=== PATIENT | male | born 1955 | race Caucasian/White ===

== ENCOUNTER 2018-07-18 22:26 | Observation (INO) | payer OTHER ==
[~2018-07-18] VITALS: Ht 190.5 cm; Wt 112.3 kg
--- NOTE | ~2018-07-18 | HEMODYNAMI ---
PATIENT:JONATHAN OTTO MEDICAL RECORD: [id number] : 51 LOCATION:[facility] D.2124 ADMISSION DATE: 07/18/18 Generatedon:07/20/20188:46 Patient name: JONATHAN OTTO Patient #: [id number] SSN: : Date of study: 07/20/2018 Page: Of Hemodynamic Procedure Report Patient Data Patient Demographics Procedure consent was obtained First Name: JONATHAN Gender: Male Last Name: FAM : 1955 [facility] Initial: KAROLYN Age: 62 year(s) Patient #: [id number] Race: Unknown Additional ID: [id number] Contact details [address]: [address] [place] [address] State: [place] City: [place] Zip code: [address] Past Medical History Allergies Allergen Reaction Date Comments Reported Morphine 07/20/2018 Admission Admission Data Admission Date: 07/18/2018 Admission Time: 23:44 Room #: D.2124 Procedure Procedure Types Cath Procedure Diagnostic Procedure [facility] w/Coronaries PCI Procedure Coronary Stent Coronary Stent Initial Procedure Description Procedure Date Procedure Date: 07/20/2018 Procedure Start Time: 8:25 Procedure End Time: 8:45 Procedure Staff Name Function Willis Krishnan MD Performing Physician Diana Abbott RN Nurse Kylee Arambula RT Scrub Troy Granger RT Monitor Grupo Acuna RN Duty Officer Alexa Alonzo RN Duty Officer Procedure Data Cath Procedure Contrast Material Contrast Material Type Amount (ml) Isovue 300 109 Entry Location Entry Primary Successful Side Size Upsize Upsize Entry Closure Monet ccessful Closure Location (Fr) 1 (Fr) 2 (Fr) Remarks Device Remarks Radial Right 6 Fr Mechanical artery Short Compression Diagnostic catheters Device Type Used For End Catheter Placement DIAGNOSTIC Leota 110cm 5 LV Angiography Fr catheter ([id number]) DIAGNOSTIC AR2 MOD 5 Fr Right Coronary catheter ([id number]) Angiography Procedure Complications No complications Procedure Medications Medication Administration Route Dosage Oxygen etCO2 Nasal cannula 2 l/min Lidocaine 2% added to field 20 Heparin Flush Bag added to field 2 bags (1000units/500ml NS) 0.9% NaCl I.V. 100 ml/hr Radial Cocktail added to field 1 syringe (Verapomil 2mg/Nitro 400mcg/Heparin 1500units) Versed I.V. 2 mg Fentanyl I.V. 50 mcg Versed I.V. 1 mg Fentanyl I.V. 25 mcg Heparin Bolus I.V. 5000 units Plavix P.O. 75 mg Hemodynamics Rest Heart Rate: 74 (bpm) Pressure Samples Time Site Value (mmHg) Purpose Heart Use Rate(bpm) 8:29 AO 147/31(49) Snapshot 73 8:29 AO 132/26(64) EDP 73 Snapshots Pre Cath Intra NCS Post Cath Vital Signs Time Heart Resp SPO2 etCO2 NIBP (mmHg) Rhythm Pain Sedation Rate (ipm) (%) (mmHg) Status Level (bpm) 8:12:27 64 23 99 31 136/93(121) A-Flutter 0 (11) 10(A) , No pain 8:16:38 73 22 98 23 139/95(117) A-Flutter 0 (11) 10(A) , No pain 8:20:54 77 21 97 27 138/89(118) A-Flutter 0 (11) 10(A) , No pain 8:25:02 83 17 98 26.3 136/101(111) A-Flutter 0 (11) 10(A) , No pain 8:29:12 81 15 96 20 119/91(106) A-Flutter 0 (11) 10(A) , No pain 8:33:24 83 16 96 27.1 122/84(116) A-Flutter 0 (11) 9(A) , No pain 8:37:32 79 14 98 21.9 129/93(110) A-Flutter 0 (11) 9(A) , No pain 8:41:38 81 15 99 26.3 135/91(120) A-Flutter 0 (11) 10(A) , No pain 8:45:56 70 17 95 20.1 124/79(109) A-Flutter 0 (11) 10(A) , No pain Medications Time Medication Route Dose Verified Delivered Reason Note s Effectiveness by by 8:11:02 Oxygen etCO2 2 l/min Willis Ortiz used for Nasal St Brenden Abbott RN procedure cannula 8:11:08 Lidocaine 2% added 20ml Willis Pedro for local to vial [facility] anesthetic field MD YEN 8:11:14 Heparin Flush added 2 bags Willis Pedro used for Bag to [facility] procedure (1000units/500ml field MD YEN NS) 8:11:22 0.9% NaCl I.V. 100 Willis Ortiz Per physician ml/hr St Brenden Abbott RN, MD 8:22:11 Fentanyl I.V. 50 mcg Willis Saenza for sedation St Brenden Alonzo MD, RN 8:22:52 Versed I.V. 2 mg Willis Alexa for sedation St Brenden Alonzo MD, RN 8:25:11 Radial Cocktail added 1 Willis Pedro used for (Verapomil to syringe [facility] procedure 2mg/Nitro field MD YEN 400mcg/Heparin 1500units) 8:29:20 Versed I.V. 1 mg Willis Alexa for sedation St Brenden Alonzo MD, RN 8:29:26 Fentanyl I.V. 25 mcg Willis Alexa for sedation St Brenden Alonzo MD, RN 8:38:20 Heparin Bolus I.V. 5000 Willis Alexa for veri fied units [facility] anticoagulation with Dr. MD GARCIA Carefree 8:39:46 Plavix P.O. 75 mg Willis Alexa [address] [facility] Brenden Alonzo antiplatelet RN therapy Procedure Log Time Note 7:49:28 Diagnostic Cath status Elective 7:49:30 Signed procedure consent form obtained from patient. 7:49:31 Time tracking: Regular hours (M-F 7:00 - 5:00) 7:49:35 Plan of Care:Hemodynamics will remain stable., Cardiac rhythm will remain stable., Comfort level will be maintained., Respiratory function will remain adequate., Patient/ family verbilizes understanding of procedure., Procedure tolerated without complication., Recovers from procedure without complications.. 7:54:04 Grupo Acuna RN sent for patient. Start room use. 8:04:52 Patient received from Med II to CCL 1 Alert and oriented. Tansferred to table in Supine position. 8:04:53 Warm blankets applied, and facundo hugger turned on for patient comfort. 8:04:54 Correct patient and procedure confirmed by team. 8:04:55 ECG and BP/O2 sat monitors applied to patient. 8:11:02 Oxygen 2 l/min etCO2 Nasal cannula was administered by Diana Abbott RN; used for procedure; 8:11:08 Lidocaine 2% 20ml vial added to field was administered by Willis Krishnan MD; for local anesthetic; 8:11:14 Heparin Flush Bag (1000units/500ml NS) 2 bags added to field was administered by Willis Krishnan MD; used for procedure; 8:11:22 0.9% NaCl 100 ml/hr I.V. was administered by Diana Abbott RN; Per physician; 8:11:26 Vital chart was started 8:18:07 Baseline sample Acquired. 8:18:11 Rhythm: atrial flutter 8:18:14 Full Disclosure recording started 8:18:39 H&P Date Dictated: 07/18/2018 Within 30 days and on chart., H&P Addendum completed by physician on day of procedure. (MUST COMPLETE FOR ALL OUTPATIENTS). 8:18:42 Pre-procedure instructions explained to patient. 8:18:47 Family in patients room. 8:18:48 Patient NPO since Midnight. 8:18:57 Patient allergic to Morphine 8:19:05 Is the patient allergic to Iodine/contrast media? No. 8:19:10 Is patient on blood thinner?No 8:19:12 Patient diabetic? No. 8:19:14 ----Pre-sedation anethsthesia assessment.---- 8:19:18 Previous problem with sedation/anesthesia? No ? 8:19:21 Snore? Yes 8:19:24 Sleep apnea? No 8:19:26 Deviated septum? No 8:19:42 Opens mouth fully? Yes 8:19:44 Sticks out tongue? Yes 8:19:48 Airway obstruction? No ? 8:19:56 Dentures? Yes out 8:21:09 Pre procedure: right dorsailis pedis pulse 2+ Normal; easily identifiable; not easily obliterated 8:21:20 Modified Nilesh's test Ulnar < 7 seconds 8:21:24 Patient pain scale 0/10 ?. 8:21:33 IV patent on arrival in left antecubital with 0.9% NaCl at 10ml/hr. 8:21:37 Lab results completed and on chart. 8:21:40 Right Radial & Right Groin area was prepped with chlora-prep and draped in sterile fashion 8:21:42 Alarms reviewed by R. N. 8:21:43 Sharps counted by scrub and verified by R.N. 8:21:44 Physician arrived 8:21:45 --------ALL STOP TIME OUT------ 8:21:45 Final Timeout: patient, procedure, and site verified with staff and physician. All members of the team are in agreement. 8:21:47 Right Radial & Right Groin site verified by team. 8:21:50 Physical assessment completed. ASA score P 2 - A patient with mild systemic disease as per Willis Krishnan MD. 8:21:55 Sedation plan: IV Moderate Sedation Medication:Versed, Fentanyl 8:22:01 Use device set Radial Dx or PCI 8:22:03 ACIST Syringe (57768) opened to sterile field. 8:22:04 Medline Cath Pack ([id number]) opened to sterile field. 8:22:04 Bag Decanter (2002S) opened to sterile field. 8:22:05 DIAGNOSTIC WIRE .035 260cm J wire (233231) opened to sterile field. 8:22:05 ACIST Hand Control (95618) opened to sterile field. 8:22:05 ACIST Manifold (92939) opened to sterile field. 8:22:06 Tegaderm 4 x 4 (1626W) opened to sterile field. 8:22:06 MBrace Wrist Support ([id number]) opened to sterile field. 8:22:11 Fentanyl 50 mcg I.V. was administered by Alexa Alonzo RN; for sedation; 8:22:12 SHEATH 6FR Slender (24-4456) opened to sterile field. 8:22:52 Versed 2 mg I.V. was administered by Alexa Alonzo RN; for sedation; 8:23:01 Zero performed for pressure channel P1 8:23:33 Procedure started. 8:25:11 Radial Cocktail (Verapomil 2mg/Nitro 400mcg/Heparin 1500units) 1 syringe added to field was administered by Willis Krishnan MD; used for procedure; 8:25:19 Local anesthetic to right radial artery with Lidocaine 2% by Willis Krishnan MD.INITIAL ACCESS ONLY 8:25:31 A 6 Fr Short sheath was inserted into the Right Radial artery 8:29:17 Zero performed for pressure channel P1 8:29:20 Versed 1 mg I.V. was administered by Alexa Alonzo RN; for sedation; 8:29:20 Zero performed for pressure channel P1 8:29:22 Zero performed for pressure channel P1 8:29:24 Zero performed for pressure channel P1 8:29:26 Fentanyl 25 mcg I.V. was administered by Alexa Alonzo RN; for sedation; 8:29:57 A DIAGNOSTIC Leota 110cm 5 Fr catheter ([id number]) was advanced over the wire and used for LV Angiography. 8:30:14 LV angiography performed. 8:30:20 EF : 25 % 8:30:24 LCA angiography performed. 8:32:26 Catheter exchanged over wire. 8:33:05 A DIAGNOSTIC AR2 MOD 5 Fr catheter ([id number]) was advanced over the wire and used for Right Coronary Angiography. 8:33:24 RCA angiography performed. 8:34:53 Catheter exchanged over wire. 8:36:50 Zero performed for pressure channel P1 8:38:20 Heparin Bolus 5000 units I.V. was administered by Alexa Alonzo RN; for anticoagulation; verified with Dr. Bustillos 8:38:57 WHISPER 300cm guide wire ([id number]) opened to sterile field. 8:38:57 INFLATOR Merit BasixCompak (VX0760) opened to sterile field. 8:39:10 GUIDE 6FR EBU 4.0 guide catheter ([id number]) opened to sterile field. 8:39:24 6 Fr ebu 4 guide catheter was inserted over the wire 8:39:28 whisper wire advanced. 8:39:46 Plavix 75 mg P.O. was administered by Alexa Alonzo RN; for antiplatelet therapy; 8:42:06 Place stent Inflation Number: 1 A INTEGRITY OTW 3.5 X 22 stent ([id number]) was prepped and advanced across the Mid LAD. The stent was deployed at 14 YOLANDA for 0:29 (min:sec). 8:42:08 Stent catheter was removed intact over wire. 8:42:08 Wire removed. 8:42:11 Guide catheter removed. 8:42:18 Contrast amount:Isovue 300 109ml. 8:42:25 Sheath removed intact; hemostasis achieved with Mechanical Compression to the Right Radial artery. 8:42:27 Procedure ended.(Physican Out) 8:43:11 Procedure type changed to Cath procedure, Diagnostic procedure, LHC, LHC w/Coronaries, PCI procedure, Coronary Stent, Coronary Stent Initial 8:43:14 Sharps counted by scrub and verified by R.N. 8:43:17 TR band inflated with 10cc of air. 8:43:24 Post right radial artery:stable 8:43:25 Post Procedure Pulses reassessed and unchanged 8:43:32 Post procedure rhythm: atrial flutter 8:43:33 Post procedure instruction explained to patient.Patient verbalizes understanding. 8:43:51 Procedure and supply charges have been captured, reviewed, submitted and are correct. 8:44:59 TR BAND Large ([id number]) opened to sterile field. 8:45:15 Procedure Complication : No complications 8:45:18 Vital chart was stopped 8:45:18 See physician's report for complete and final results. 8:45:20 Report given to PCU. 8:45:24 Patient transfered to PCU with Bed. 8:45:57 Procedure ended. 8:45:57 Full Disclosure recording stopped 8:46:06 ACC-PCI Only Patient was given prescriptions, or instructed by Willis Krishnan MD to start/continue the following medications upon discharge: Plavix 8:46:07 End room use (Document Last) Intervention Summary Intervention Notes Time ActionType Lesion and Equipment Action# Pressure Duration Attributes Used 8:42:06 Place stent Mid LAD INTEGRITY 1 14 00:29 OTW 3.5 X 22 stent ([id number]) Device Usage Item Name Manufacture Quantity Catalog Hospital Part Current Minimal Lot# / Number Charge Number Stock Stock Serial# Code ACIST Acist 1 57422 497141 561108 533801 20 Syringe SoundRoadie (77134) Systems Inc Medline Medline 1 [id number] 042591 90008 705401 5 Cath Pack ([id number]) Bag Microtek 1 354165 01949 133790 5 Decanter Medical Inc. () DIAGNOSTIC St Pablo 1 213853 695391 755965 376815 30 WIRE .035 260cm J wire (334250) ACIST Hand Acist 1 11347 625167 142066 797474 5 Control Medical (25052) Systems Inc ACIST Acist 1 86942 881514 547847 650015 5 Manifold Medical (03533) Systems Inc Tegaderm 4 3M 1 1626W 148723 188702 546384 5 x 4 (1626W) MBrace Advanced 1 140-0250-00 253684 70362 103690 5 Wrist Vascular Support Dynamics (274241057) SHEATH 6FR Terumo 1 [id number] 624783 074641 327105 5 Slender (80-1060) DIAGNOSTIC Terumo 1 40-5013 199964 893550 243591 5 Leota 110cm 5 Fr catheter (722137) DIAGNOSTIC Cardinal 1 [id number] 110329 745338 964790 20 AR2 MOD 5 Health Fr catheter (344910C) WHISPER Parks 1 [id number] 629473 090799 776063 5 300cm guide Vascular wire (2937730JW) INFLATOR Fundamo (Proprietary) 1 RL6018 618565 988827 829450 15 [facility] Medical BasixCompak (YQ4415) GUIDE 6FR Medtronic 1 [id number] 764864 03811 140745 1 EBU 4.0 guide catheter ([id number]) INTEGRITY Medtronic 1 [id number] 500944 575396 6 [id number] OTW 3.5 X 22 stent ([id number]) TR BAND Terumo 1 QPH68-NOK 702217 178584 267003 40 Large (YFW98TML) Signature Audit Perkins Stage Time Signature Unsigned Intra-Procedure 07/20/2018 Troy Granger RT(Guillermo) 8:46:46 AM Signatures Monitor : Troy Granger RT Signature : Date : Time : [facility] [address] [place] [address]
--- NOTE | ~2018-07-18 | OP ---
PATIENT NAME: JONATHAN OTTO MEDICAL RECORD: [id number] :51 LOCATION:D.M2 D.2124 ADMISSION DATE:07/18/18 SURGEON: DENYS TAYLOR MD DATE OF OPERATION: 07/20/2018 PROCEDURE: Left heart catheterization, selective coronary angiography, right radial approach. CATHETERS: A radial catheter. Diagnostically, we used an EBU 4 guiding catheter. The procedure was well tolerated. We proceeded to do PTCA sitting LAD. FINDINGS: Left ventriculography in 30-degree AVERY view shows global hypokinesis, reduced EF, estimated EF 25% to 30%. CORONARY ANATOMY: LEFT MAIN: Left main is free of disease. LAD: Has severe diffuse stenosis 80% just past the first diagonal. CIRCUMFLEX: Free of disease. RIGHT CORONARY ARTERY: Has 2 discrete stenoses in its proximal mid portion approximately 80%. IMPRESSION: Plan revascularization LAD right at a later date. DESCRIPTION OF PROCEDURE: Using indwelling sheath, an EBU 4 guiding catheter provided good guide catheter support followed by 300 cm Whisper wire. Stent deployed was a 3.5 x 22 mm Integrity nondrug-eluting stent up to 14 atmospheres. Final angiography shows excellent resolution of 80% stenosis, no significant residual. ROCCO flow was 3 throughout the procedure. Plavix had previously been loaded and will be started on appropriate cardiomyopathic medications. Consider cardioversion, revascularization of the right at a later date. TRANSINT:[id number] Voice Confirmation ID: [id number] DOCUMENT ID: [id number] DENYS TAYLOR MD CC: [id number] DICTATION DATE: 07/20/18 0850 WELLNESS SPECIALIST: 07/20/18 0903 ADM IN [place] [id number] [place] [address]
--- NOTE | ~2018-07-18 | EC ---
PATIENT:JONATHAN OTTO DATE OF SERVICE: 07/18/18 SEX: M MEDICAL RECORD: [id number] DATE OF : [birth year] LOCATION:D.M2 D.212 AGE OF PATIENT: 62 ADMISSION DATE: 07/18/18 REFERRING PHYSICIAN: INTERPRETING PHYSICIAN: KIRAN WILCOX MD ECHOCARDIOGRAM REPORT ECHO CHARGES 4 ECHO COMPLETE Date: 07/19/18 CLINICAL DIAGNOSIS: CHEST PAIN ECHOCARDIOGRAPHIC MEASUREMENTS (adult normal given) AC root (d.<3.7cm) 3.7 cm LV Septum d (<1.2 cm> 1.1 cm Valve Excursion 1.6 cm LV Septum (systole) 1.4 cm Left Atria (s.<4.0cm> 4.6 cm LVPW d(<1.2cm) 1.4 cm RV (d.<2.3cm) 4.2 cm LVPW (sytole) 1.8 cm LV diastole(<5.6CM) 7.6 cm MV E-F(>70mm/sec) cm LV systole 6.1 cm LVOT Diameter 2.3 cm MV exc.(>10mm) 1.4 cm Est.ejection fraction (50-75%) % DOPPLER: LVIT cm/sec A 75.0 cm/sec E 30.0 cm/sec LA cm/sec RVSP 18 mmHg LVOT 128 cm/sec AOP1/2T m/s Asc. Ao 168 cm/sec RVOT 81 cm/sec RA cm/sec PA 172 cm/sec AV Gradient Peak 11.30mmHg AV Mean 6.31 mmHg AV Area 3.2 cm MV Gradient Peak 5.85 mmHg MV Mean 1.83 mmHg MV Area cm COMMENTS: Collision Worker: 2 ROME SUE Car Pre Cooler: 1 Dr. Wilcox TAPE# PACS Pericardial Effusion N DATE OF SERVICE: FINDINGS: 1. Left ventricular chamber size is moderate to severely dilated. Left ventricular systolic function is moderately reduced. Overall ejection fraction in the 35% range. 2. Left atrium is enlarged at 4.6 cm. Right atrium and right ventricle chamber sizes are as well moderately dilated. 3. Valvular structures have normal structure and motion. 4. Doppler interrogation reveals mild mitral regurgitation. No other valvular ECHOCARDIOGRAM REPORT [id number] JONATHAN OTTO insufficiency or stenosis. Pulmonary systolic pressure is preserved at 18 mmHg. 5. No evidence of pericardial effusion or left ventricular thrombus. TRANSINT:[id number] Voice Confirmation ID: [id number] DOCUMENT ID: [id number] KIRAN WILCOX MD CC: [id number] DICTATION DATE: 07/19/18 160 APPLICATIONS ENGINEERING MANAGER: 07/19/18 223 ADM IN [facility] [address] [place] [address]
--- NOTE | ~2018-07-18 | CN ---
PATIENT NAME:MELVINA OTTO MEDICAL RECORD: [id number] : 51 LOCATION:D. D.2124 ADMIT DATE: 07/18/18 ACCOUNT: [id number] CONSULTING PHYSICIAN: DENYS TAYLOR MD REFERRING PHYSICIAN: MATY BRIONES MD DATE OF CONSULTATION: 07/19/2018 HISTORY: A 62-year-old gentleman with no known cardiovascular history, reports about a month history of progressive dyspnea on exertion and shortness of breath progressing to the point of melvina orthopnea, PND. He was seen in [place] ER and found to have atrial flutter and elevated troponin as well. He was brought here for higher level of care. Currently, he is improved on IV Lasix. Rates are fairly well controlled on telemetry. PAST MEDICAL HISTORY: Otherwise unremarkable. MEDICATIONS: None chronically. ALLERGIES: MORPHINE. SOCIAL HISTORY: He smokes a little less than a pack a day. He still works multimedia manager. He takes care of all his ADLs. REVIEW OF SYSTEMS: The patient reports easy bruising but reports no swollen glands. The patient reports no fever, no night sweats, no significant weight gain, no significant weight loss. No significant exercise tolerance. The patient reports no dry eyes, no irritation, no vision change. Patient reports no difficulty hearing and no ear pain. Patient reports no frequent nose bleeds or nose and sinus problems. Patient reports on arm pain on exertion. No shortness of breath while lying down. No history of heart murmur. Patient reports no cough, no wheezing or coughing up blood. Patient reports no abdominal pain, no vomiting. Normal appetite. No diarrhea and not vomiting blood. No nausea and no constipation. Patient reports no incontinence. No difficulty urinating. No hematuria. No increased frequency. Patient reports no muscle aches. No weakness, no arthralgias, no back pain. No swelling of the extremities. Patient reports no abnormal mole, no jaundice, no rashes. Reports no loss of consciousness. No weakness and no numbness. No seizures, dizziness, or headaches. The patient reports no depression, no sleep disturbance, feeling safe in a relationship and no alcohol abuse. Patient reports on fatigue. Reports no runny nose or sinus pressure. No itching, no hives, and no frequent sneezing. PHYSICAL EXAMINATION: GENERAL: Pleasant gentleman, in no acute distress, appears stated age. VITAL SIGNS: Pulse 106 and irregular, BP 134/96. NECK: No JVD or bruit. HEART: Irregular with II/ systolic ejection murmur. LUNGS: Decreased breath sounds bilaterally. ABDOMEN: Soft and nontender. EXTREMITIES: Pulses are 1+. There is no edema. DIAGNOSTIC DATA: ECG shows atrial flutter variable block ST-T changes. IMPRESSION: Atrial flutter, historically at least of one month duration; elevated cardiac enzymes with chest pain. It could be demand ischemia versus a CONSULT REPORT [id number] MELVINA OTTO true fixed obstructive disease. We will start Betapace for rate control and atrial stabilization. Plavix will be loaded. We will plan on angiography and intervention based on the above. TRANSINT:[id number] Voice Confirmation ID: [id number] DOCUMENT ID: [id number] DENYS TAYLOR MD CC: [id number] DICTATION DATE: 07/19/18 1348 DATA PROCESSING MECHANIC: 07/19/18 1737 ADM IN [place] [id number] [place] [address]
[2018-07-18 23:31] LABS: HEMATOCRIT 43.9 % (42.0-54.0); HEMOGLOBIN 14.7 g/dL (13.5-17.5); LYMPHOCYTES 22.4 % (15-50); MCH 29.8 pg (26.0-34.0); MCHC 33.5 g/dL (31.0-37.0); MCV 88.9 fL (80.0-100.0); MEAN PLATELET VOLUME 10.8 fL (7.4-10.4); NEUTROPHILS 62.2 % (40-80); PLATELET COUNT 199 10x3/uL (130-400); RBC 4.94 10x6/uL (4.20-6.10); RDW 14.4 % (11.5-14.5)
[2018-07-18 23:46] LABS: ALBUMIN 3.6 g/dL (3.4-5.0); ALKALINE PHOSPHATASE 48 U/L (46-116); ALT (SGPT) 40 U/L (10-68); BILIRUBIN - TOTAL 1.21 mg/dL (0.2-1.3); CALC OSMOLALITY 272 mosm/kg (275-300); CALCIUM 9.1 mg/dL (8.5-10.1); CARBON DIOXIDE 26.1 mmol/L (21.0-32.0); CHLORIDE - SERUM 101 mmol/L (98-107); CREATININE - SERUM 0.9 mg/dL (0.6-1.3); GLUCOSE 98 mg/dL (74-106); POTASSIUM - SERUM 3.3 mmol/L (3.5-5.1); PROTEIN - SERUM 7.6 g/dL (6.4-8.2); SODIUM 136 mmol/L (136-145); UREA NITROGEN 16 mg/dL (7-18); eGFR NON AFRICAN AMERICAN 90 mL/min (90-120)
[2018-07-19] VITALS: BP 179/107
[2018-07-19 00:01] LABS: CKMB 3.9 U/L (0.0-3.6); CREATINE KINASE 156 UL (21-232)
[2018-07-19 00:07] LABS: TROPONIN-I 0.085 ng/mL (0.000-0.060)
[2018-07-19] MEDS ORDERED: MULTI-DAY VITAM1 TAB PO (00:31)
[2018-07-19] MEDS ORDERED: GLUCOSAMINE HC500 MG PO (00:31)
[2018-07-19] MEDS ORDERED: ALEVE220 MG PO (00:32)
[2018-07-19 05:08] VITALS: BP 153/100
[2018-07-19 05:16] VITALS: Ht 190.5 cm; Wt 112.3 kg
[2018-07-19 06:02] LABS: BASOPHILS 0.6 % (0-2); EOSINOPHILS 4.4 % (0-7); HEMOGLOBIN 14.4 g/dL (13.5-17.5); IMMATURE GRANULOCYTES 0.1 % (0-5); MCH 29.8 pg (26.0-34.0); MCHC 33.5 g/dL (31.0-37.0); MEAN PLATELET VOLUME 11.5 fL (7.4-10.4); MONOCYTES 13.5 % (2-11); NEUTROPHILS 59.4 % (40-80); PLATELET COUNT 204 10x3/uL (130-400); RBC 4.83 10x6/uL (4.20-6.10); RDW 14.5 % (11.5-14.5); WBC 8.5 10x3/uL (4.8-10.8)
[2018-07-19 06:04] LABS: INR 1.13 (0.85-1.17)
[2018-07-19 06:44] LABS: CALC OSMOLALITY 291 mosm/kg (275-300); CALCIUM 9.1 mg/dL (8.5-10.1); CARBON DIOXIDE 26.5 mmol/L (21.0-32.0); CHLORIDE - SERUM 108 mmol/L (98-107); CREATININE - SERUM 0.8 mg/dL (0.6-1.3); GLUCOSE 94 mg/dL (74-106); POTASSIUM - SERUM 3.1 mmol/L (3.5-5.1); SODIUM 146 mmol/L (136-145); TROPONIN-I 0.086 ng/mL (0.000-0.060); UREA NITROGEN 14 mg/dL (7-18); eGFR NON AFRICAN AMERICAN > 90 mL/min (90-120)
[2018-07-19 09:08] VITALS: BP 134/96
[2018-07-19 12:48] VITALS: BP 157/102
[2018-07-19 14:27] LABS: CALC OSMOLALITY 284 mosm/kg (275-300); CALCIUM 8.8 mg/dL (8.5-10.1); CARBON DIOXIDE 21.3 mmol/L (21.0-32.0); CHLORIDE - SERUM 106 mmol/L (98-107); CREATININE - SERUM 0.8 mg/dL (0.6-1.3); GLUCOSE 111 mg/dL (74-106); MAGNESIUM - SERUM 1.7 mg/dL (1.8-2.4); SODIUM 142 mmol/L (136-145); T4 THYROXIN - FREE 1.13 ng/dL (0.76-1.46); THYROID STIMULATING HORMONE 2.82 uIU/mL (0.36-3.74); UREA NITROGEN 15 mg/dL (7-18); eGFR NON AFRICAN AMERICAN > 90 mL/min (90-120)
[2018-07-19 14:30] LABS: POTASSIUM - SERUM 3.6 mmol/L (3.5-5.1)
[2018-07-19 15:15] LABS: BASOPHILS 0.9 % (0-2); EOSINOPHILS 3.6 % (0-7); HEMATOCRIT 40.5 % (42.0-54.0); HEMOGLOBIN 13.6 g/dL (13.5-17.5); IMMATURE GRANULOCYTES 0.1 % (0-5); LYMPHOCYTES 17.8 % (15-50); MCH 29.7 pg (26.0-34.0); MCHC 33.6 g/dL (31.0-37.0); MCV 88.4 fL (80.0-100.0); NEUTROPHILS 64.6 % (40-80); PLATELET COUNT 191 10x3/uL (130-400); RBC 4.58 10x6/uL (4.20-6.10); RDW 14.4 % (11.5-14.5)
[2018-07-19 16:40] VITALS: BP 128/84
[2018-07-19 21:41] VITALS: BP 121/78
[2018-07-20 01:23] VITALS: BP 137/91
[2018-07-20 05:44] VITALS: BP 107/65
[2018-07-20 07:08] LABS: BASOPHILS 0.6 % (0-2); EOSINOPHILS 4.6 % (0-7); HEMATOCRIT 40.3 % (42.0-54.0); HEMOGLOBIN 13.5 g/dL (13.5-17.5); IMMATURE GRANULOCYTES 0.2 % (0-5); MCH 29.8 pg (26.0-34.0); MCHC 33.5 g/dL (31.0-37.0); MEAN PLATELET VOLUME 11.8 fL (7.4-10.4); MONOCYTES 11.2 % (2-11); NEUTROPHILS 56.4 % (40-80); PLATELET COUNT 185 10x3/uL (130-400); RBC 4.53 10x6/uL (4.20-6.10); RDW 14.4 % (11.5-14.5); WBC 8.2 10x3/uL (4.8-10.8)
[2018-07-20 07:17] LABS: CALC OSMOLALITY 291 mosm/kg (275-300); CALCIUM 8.4 mg/dL (8.5-10.1); CARBON DIOXIDE 25.1 mmol/L (21.0-32.0); CHLORIDE - SERUM 109 mmol/L (98-107); CREATININE - SERUM 0.8 mg/dL (0.6-1.3); GLUCOSE 101 mg/dL (74-106); POTASSIUM - SERUM 3.5 mmol/L (3.5-5.1); SODIUM 145 mmol/L (136-145); eGFR NON AFRICAN AMERICAN > 90 mL/min (90-120)
[2018-07-20 07:29] LABS: UREA NITROGEN 20 mg/dL (7-18)
[2018-07-20] MEDS ORDERED: BETAPACE 80 MG80 MG PO (10:53)
[2018-07-20] MEDS ORDERED: PLAVIX75 MG PO (12:35)
[2018-07-20] MEDS ORDERED: XARELTO20 MG PO (12:36)
[2018-07-20] MEDS ORDERED: ALDACTONE25 MG PO (12:36)
[2018-07-20] MEDS ORDERED: BETAPACE 120 M120 MG PO (12:37)
--- NOTE | 2018-07-23 12:33 | MORECARE ---
CASE MANAGEMENT DISCHARGE SUMMARY PATIENT: JONATHAN OTTO UNIT: [id number] ADM DATE: 07/18/18 AGE: 62 : 53 SEX: M ROOM/BED: D.2124 AUTHOR: RAS RAGLAND PHYSICIAN: REFERRING PHYSICIAN: MATY BRIONES MD DATE OF SERVICE: 07/23/18 Discharge Plan Patient Name: JONATHAN OTTO [facility] [facility] 1955 Planned Disposition: Home Anticipated Discharge Date: 07/20/18 Discharge Date: 07/20/2018 Expected LOS: 2 Initial Reviewer: [email or web address] Initial Review Date: 07/23/2018 Generated: 07/23/18 1:33 pm Coverage Notice Reviewer: [email or web address] Alejandro Mcconnell Notice Issued Date-Time: 07/19/2018 16:00 Notice Type: Medicare Outpatient Observation Notice Notice Delivered To: Patient Relationship to Patient: Self Wood Chopper Name: Delivery Method: HAND - Hand Delivered Shoshana Days: Prior Verbal Notification: Recipient Understood Notice: Yes Recipient Signature: Yes Med Rec Note Co-signed by Attending: Coverage Notice Comment: Patient Name: JONATHAN OTTO Page 12842 at 1233 All edits/amendments must be made on the electronic document DICTATION DATE: 07/23/18 1232 SPIRAL TUBE WINDER HELPER: SRI 07/23/18 1232 RPT#: [id number] DC DATE:07/20/18 STATUS: DIS IN [facility] [address] [place] [address] END OF REPORT
== END 2018-07-20 17:52 | disposition home or self-care (01) ==
LOC: D.ER 22:26 → OBSVTIME 23:44 → D.EDHOLD 23:44 → D.M2 23:44
PROVIDERS: Family Medicine; Internal Medicine Interventional Cardiology; ADMIT Internal Medicine Nephrology
DX: I48.92 Unspecified atrial flutter (principal); F17.213 Nicotine dependence, cigarettes, with withdrawal; E87.6 Hypokalemia; I25.10 Atherosclerotic heart disease of native coronary artery without angina pectoris; Z86.718 Personal history of other venous thrombosis and embolism

== ENCOUNTER 2018-08-28 09:50 | Outpatient (CLI) | payer OTHER ==
[~2018-08-28] VITALS: Ht 190.5 cm; Wt 112.3 kg
--- NOTE | ~2018-08-28 | HEMODYNAMI ---
PATIENT:JONATHAN OTTO MEDICAL RECORD: [id number] : 51 LOCATION:[facility] ADMISSION DATE: 08/28/18 Generatedon:08/28/201813:40 Patient name: JONATHAN OTTO Patient #: [id number] SSN: : Date of study: 08/28/2018 Page: Of Hemodynamic Procedure Report Patient Data Patient Demographics Procedure consent was obtained First Name: JONATHAN Gender: Male Last Name: FAM : 1955 Middle Initial: KAROLYN Age: 62 year(s) Patient #: [id number] Race: Unknown Additional ID: [id number] Contact details [address]: [address] [place] [address] State: [place] City: [place] Zip code: [address] Past Medical History Allergies Allergen Reaction Date Comments Reported Morphine 07/20/2018 Morphine 08/28/2018 Admission Admission Data Admission Date: 08/28/2018 Admission Time: 9:50 Procedure Procedure Types Cath Procedure Diagnostic Procedure Cardioversion External PCI Procedure Coronary Stent Coronary Stent Initial Procedure Description Procedure Date Procedure Date: 08/28/2018 Procedure Start Time: 13:11 Procedure End Time: 13:37 Procedure Staff Name Function Willis Krishnan MD Performing Physician Mary Santos RT Monitor Alexa Alonzo RN Nurse Lata Tyler RT Scrub Amira Hernández RT Scrub Radha Mart RT Paper Sales Representative Thai Porter MD Additional personnel Procedure Data Cath Procedure Fluoroscopy Diagnostic fluoroscopy Total fluoroscopy Time: 5.3 time: 5.3 min min Diagnostic fluoroscopy Total fluoroscopy dose: 791 dose: 791 mGy mGy Contrast Material Contrast Material Type Amount (ml) Isovue 300 93 Entry Location Entry Primary Successful Side Size Upsize Upsize Entry Closure Succes sful Closure Location (Fr) 1 (Fr) 2 (Fr) Remarks Device Remarks Femoral Right 6 Fr Exoseal artery Short Estimated blood loss: 10 ml Procedure Complications No complications Procedure Medications Medication Administration Route Dosage 0.9% NaCl I.V. 100 ml/hr Oxygen etCO2 Nasal cannula 2 l/min Lidocaine 2% added to field 20 Heparin Flush Bag added to field 2 bags (1000units/500ml NS) Heparin Bolus I.V. 5000 units Refer to Anesthesia Notes for Sedation Medications Hemodynamics Rest Heart Rate: 76 (bpm) Snapshots Pre Cath Intra NCS Post Cath Vital Signs Time Heart Resp SPO2 etCO2 NIBP (mmHg) Rhythm Pain Sedation Rate (ipm) (%) (mmHg) Status Level (bpm) 12:37:28 69 18 100 32 170/107(145) A-Fib 0 (11) 10(A) , No pain 12:41:46 73 11 100 31.5 158/101(139) A-Fib 0 (11) 10(A) , No pain 12:46:10 70 11 100 27.7 168/101(142) A-Fib 0 (11) 10(A) , No pain 12:50:39 73 12 100 30.8 177/117(142) A-Fib 0 (11) 10(A) , No pain 12:55:09 74 12 100 36 179/103(150) A-Fib 0 (11) 10(A) , No pain 12:59:35 66 15 100 30 173/106(151) A-Fib 0 (11) 10(A) , No pain 13:05:25 79 10 100 21.7 184/112(153) A-Fib 0 (11) 5(A) , No pain 13:11:57 90 16 98 0 184/129(156) NSR 0 (11) 5(A) , No pain 13:16:23 86 15 93 0 177/105(141) NSR 0 (11) 5(A) , No pain 13:20:45 91 15 94 0 161/106(126) NSR 0 (11) 5(A) , No pain 13:25:09 92 14 94 29.3 160/107(131) NSR 0 (11) 5(A) , No pain 13:29:34 71 15 98 0 163/88(125) NSR 0 (11) 10(A) , No pain 13:33:58 83 12 98 29.3 172/108(138) NSR 0 (11) 10(A) , No pain 13:37:10 82 17 98 14.2 181/115(136) NSR 0 (11) 10(A) , No pain 13:39:23 82 16 99 26.2 194/121(161) NSR 0 (11) 10(A) , No pain Medications Time Medication Route Dose Verified Delivered Reason Notes Effectiveness by by 12:44:21 0.9% NaCl I.V. 100 Willis Alexa used for ml/hr [facility] procedure MD GARCIA 12:44:28 Oxygen etCO2 2 Willis Saenza used for Nasal l/min [facility] procedure cannula MD GARCIA 12:44:35 Lidocaine 2% added 20ml Willis Pedro for local to vial [facility] anesthetic field MD YEN 12:44:41 Heparin Flush added 2 Willis Willis used for Bag to bags [facility] procedure (1000units/500ml field MD YEN NS) 13:14:20 Heparin Bolus I.V. 5000 Willis Alexa for verif ied units [facility] anticoagulation with Dr. YEN RN Blunt 13:14:48 Refer to Willis Liu Anesthesia Notes [facility] for Sedation RN Medications Procedure Log Time Note 12:26:58 Time tracking: Regular hours (M-F 7:00 - 5:00) 12:27:02 Plan of Care:Hemodynamics will remain stable., Cardiac rhythm will remain stable., Comfort level will be maintained., Respiratory function will remain adequate., Patient/ family verbilizes understanding of procedure., Procedure tolerated without complication., Recovers from procedure without complications.. 12:27:14 Radha WILSON(R) sent for patient. Start room use. 12:29:57 Patient received from Pre/Post Procedure Room to CCL 1 Alert and oriented. Tansferred to table in Supine position. 12:29:59 Warm blankets applied, and facundo hugger turned on for patient comfort. 12:29:59 Correct patient and procedure confirmed by team. 12:30:00 Signed procedure consent form obtained from patient. 12:30:01 ECG and BP/O2 sat monitors applied to patient. 12:30:02 Full Disclosure recording started 12:36:12 Vital chart was started 12:37:45 Rhythm: atrial fibrillation 12:38:54 H&P Date Dictated: 08/16/2018 Within 30 days and on chart., H&P Addendum completed by physician on day of procedure. (MUST COMPLETE FOR ALL OUTPATIENTS). 12:38:56 Pre-procedure instructions explained to patient. 12:38:57 Pre-op teaching completed and patient verbalized understanding. 12:38:59 Family in waiting room. 12:39:02 Patient NPO since Midnight. 12:39:19 Patient allergic to Morphine 12:39:22 Is the patient allergic to Iodine/contrast media? No. 12:44:02 Is patient on blood thinner?Yes 12:44:05 ACC The patient was administered the following blood thiners within the last 24 hours: Xarelto 12:44:09 Patient diabetic? No. 12:44:21 0.9% NaCl 100 ml/hr I.V. was administered by Alexa Alonzo RN; used for procedure; 12:44:28 Oxygen 2 l/min etCO2 Nasal cannula was administered by Alexa Alonzo RN; used for procedure; 12:44:35 Lidocaine 2% 20ml vial added to field was administered by Willis Krishnan MD; for local anesthetic; 12:44:41 Heparin Flush Bag (1000units/500ml NS) 2 bags added to field was administered by Willis Krishnan MD; used for procedure; 12:46:06 Previous problem with sedation/anesthesia? No ? 12:46:08 Snore? Yes 12:46:10 Sleep apnea? No 12:46:11 Deviated septum? No 12:46:12 Opens mouth fully? Yes 12:46:12 Sticks out tongue? Yes 12:46:14 Airway obstruction? No ? 12:46:22 Dentures? No ? 12:46:47 ACC The patient was administered the following blood thiners within the last 24 hours: ACCPlavix 12:46:50 Pre procedure: right dorsailis pedis pulse 2+ Normal; easily identifiable; not easily obliterated 12:46:55 Patient pain scale 0/10 ?. 12:47:11 IV patent on arrival in left forearm with 0.9% NaCl at O. 12:47:14 Lab results completed and on chart. 12:47:19 Right groin area was prepped with chlora-prep and draped in sterile fashion 12:47:20 Alarms reviewed by R. N. 12:47:21 Sharps counted by scrub and verified by R.N. 12:47:50 Use device set CATH PACK 12:47:54 Use device set BRANDON PCI 12:47:55 ACIST Syringe (36049) opened to sterile field. 12:47:56 ACIST Hand Control (58289) opened to sterile field. 12:47:56 ACIST Manifold (94551) opened to sterile field. 12:47:57 Medline Cath Pack ([id number]) opened to sterile field. 12:47:57 Bag Decanter (2002S) opened to sterile field. 12:47:58 DIAGNOSTIC WIRE .035 260cm J wire (551587) opened to sterile field. 12:47:59 INFLATOR Merit BasixCompak (UV2553) opened to sterile field. 12:48:01 WHISPER 300cm guide wire ([id number]) opened to sterile field. 12:48:03 SHEATH 6FR [place] (IDO824) opened to sterile field. 12:49:07 Baseline sample Acquired. 13:01:11 Zero performed for pressure channel P1 13:01:31 Thai Porter MD present and monitoring patient for TIVA. 13:01:45 Quick combo pads placed on patients chest and back. 13:01:57 Quick Combo opened to sterile field. 13:02:31 Final Timeout: patient, procedure, and site verified with staff and physician. All members of the team are in agreement. 13:02:39 Right groin site verified by team. 13:02:43 Fire Safety Assessment: A--An alcohol-based skin anteseptic being used preoperatively., C--Open oxygen or nitrous oxide is being used., D--An ESU, laser, or fiber-optic light is being used. 13:02:46 Physical assessment completed. ASA score P 2 - A patient with mild systemic disease as per Willis Krishnan MD. 13:02:50 Sedation plan: TIVA Medication:Propofol 13:09:38 Procedure started. 13:10:27 Defibrillator synced and charged to 200 Joules. 13:10:28 Shock delivered. 13:10:46 Patient cardioverted to 1st degree heart block. 13:11:06 Local anesthetic to right femoral artery with Lidocaine 2% by Willis Krishnan MD.INITIAL ACCESS ONLY 13:11:44 A 6 Fr Short sheath was inserted into the Right Femoral artery 13:13:29 GUIDE 6FR HS I catheter (LA6HSI) opened to sterile field. 13:13:55 6 Fr HSI guide catheter was inserted over the wire 13:14:20 Heparin Bolus 5000 units I.V. was administered by Alexa Alonzo RN; for anticoagulation; verified with Dr. Bustillos 13:14:38 WHISPER wire advanced. 13:14:48 Refer to Anesthesia Notes for Sedation Medications was administered by Alexa Alonzo RN; ; 13:21:48 Place stent Inflation Number: 1 A INTEGRITY OTW 3.0 X 15 stent ([id number]) was prepped and advanced across the Dist RCA. The stent was deployed at 14 YOLANDA for 0:06 (min:sec). 13:27:00 Stent catheter was removed intact over wire. 13:28:54 Place stent Inflation Number: 1 A INTEGRITY OTW 3.5 X 12 stent ([id number]) was prepped and advanced across the Prox RCA. The stent was deployed at 14 YOLANDA for 0:12 (min:sec). 13:30:03 Stent catheter was removed intact over wire. 13:30:04 Wire removed. 13:30:05 Guide catheter removed. 13:30:17 Sheath removed intact; hemostasis achieved with Exoseal to the Right Femoral artery. 13:30:18 Procedure ended.(Physican Out) 13:31:40 Fluoroscopy time 05.30 minutes. 13:31:44 Flurop Dose total: 791 13:31:44 Fluoroscopy dose: 791 mGy 13:31:47 Contrast amount:Isovue 300 93ml. 13:31:49 Sharps counted by scrub and verified by R.N. 13:31:51 Insertion/operative site no bleeding no hematoma. 13:31:53 Post-op/insertion site Right Femoral artery dressed using a 4 x 4 and Tegaderm. 13:31:55 Post right femoral artery:stable, clean and dry 13:31:58 Post Procedure Pulses reassessed and unchanged 13:32:00 Post-procedure physical assessment completed. ASA score P 2 - A patient with mild systemic disease as per Willis Krishnan MD. 13:32:01 Post procedure rhythm: unchanged. 13:32:04 Estimated blood loss: 10 ml 13:32:05 Post procedure instruction explained to patient.Patient verbalizes understanding. 13:32:05 Patient needs reinforcement of post procedure teaching. 13:32:16 Procedure and supply charges have been captured, reviewed, submitted and are correct. 13:32:20 Procedure Complication : No complications 13:32:22 See physician's report for complete and final results. 13:32:28 EXOSEAL 6Fr (EX600) opened to sterile field. 13:32:34 Tegaderm 4 x 4 (1626W) opened to sterile field. 13:36:39 Report given to Pre/Post Procedure Room. 13:36:48 Patient transfered to Pre/Post Procedure Room with Stretcher. 13:37:23 Vital chart was stopped 13:37:24 Procedure ended. 13:37:24 Full Disclosure recording stopped 13:37:28 End room use (Document Last) Intervention Summary Intervention Notes Time ActionType Lesion and Equipment Action# Pressure Duration Attributes Used 13:21:48 Place stent Dist RCA INTEGRITY 1 14 00:06 OTW 3.0 X 15 stent ([id number]) 13:28:54 Place stent Prox RCA INTEGRITY 1 14 00:12 OTW 3.5 X 12 stent ([id number]) Device Usage Item Name Manufacture Quantity Catalog Hospital Part Current Minima l Lot# / Number Charge Number Stock Stock Serial# Code ACIST Acist 1 72172 324187 757619 905910 20 Syringe Medical (23045) Systems Inc ACIST Hand Acist 1 14629 053592 009234 136423 5 Control Medical (01106) Systems Inc ACIST Acist 1 13387 292310 809366 259657 5 Manifold Medical (35686) Systems Inc Medline Medline 1 [id number] 920750 30070 232416 5 Cath Pack ([id number]) Bag Microtek 1 047372 72412 916719 5 Decanter Medical Inc. () DIAGNOSTIC St [place] 1 200986 562131 288596 975111 30 WIRE .035 260cm J wire (241798) INFLATOR Merit 1 AG1591 595459 019050 111064 15 DLVR Therapeutics Medical BasixCompak (EO5491) WHISPER [place] 1 [id number] 847302 262968 066829 5 300cm guide Vascular wire ([id number]) SHEATH 6FR Terumo 1 YAN564 204268 865352 928465 40 [place] (AXX293) Quick CombBlackSquare 1 42177-142779 664359 527805 397653 5 GUIDE 6FR Medtronic 1 LA6HSI 931858 89555 572036 1 HS I catheter (LA6HSI) INTEGRITY Medtronic 1 [id number] 728080 077135 272129 4 [id number] OTW 3.0 X 15 stent ([id number]) INTEGRITY Medtronic 1 [id number] 727158 620093 254059 7 [id number] OTW 3.5 X 12 stent ([id number]) EXOSEAL 6Fr Cardinal 1 EX600 746707 666885 332596 10 (EX600) Health Tegaderm 4 3M 1 1626W 420841 626189 955003 5 x 4 (1626W) Signature Audit [place] Stage Time Signature Unsigned Intra-Procedure 08/28/2018 Mary 1:40:14 PM Counts RT(R) Signatures Monitor : Mary Signature : Counts RT Date : Time : [place] [id number] [place] [address]
[~2018-08-28 09:50] MED LIST: ALDACTONE25 MG PO; ALEVE220 MG PO; BETAPACE 120 M120 MG PO; BETAPACE 80 MG80 MG PO; GLUCOSAMINE HC500 MG PO; MULTI-DAY VITAM1 TAB PO; PLAVIX75 MG PO; XARELTO20 MG PO
[2018-08-28] MEDS ORDERED: NORVASC5 MG PO (10:11)
[2018-08-28 10:24] VITALS: BP 150/86; Ht 190.5 cm; Wt 112.3 kg
[2018-08-28 10:49] LABS: BASOPHILS 0.5 % (0-2); EOSINOPHILS 6.1 % (0-7); HEMATOCRIT 42.5 % (42.0-54.0); HEMOGLOBIN 14.6 g/dL (13.5-17.5); LYMPHOCYTES 24.6 % (15-50); MCH 29.9 pg (26.0-34.0); MCHC 34.4 g/dL (31.0-37.0); MCV 86.9 fL (80.0-100.0); MONOCYTES 10.7 % (2-11); NEUTROPHILS 58.1 % (40-80); PLATELET COUNT 178 10x3/uL (130-400); RBC 4.89 10x6/uL (4.20-6.10); RDW 14.6 % (11.5-14.5); WBC 7.4 10x3/uL (4.8-10.8)
[2018-08-28 11:02] LABS: CALC OSMOLALITY 285 mosm/kg (275-300); CALCIUM 8.5 mg/dL (8.5-10.1); CARBON DIOXIDE 23.2 mmol/L (21.0-32.0); CHLORIDE - SERUM 106 mmol/L (98-107); CREATININE - SERUM 0.8 mg/dL (0.6-1.3); GLUCOSE 108 mg/dL (74-106); POTASSIUM - SERUM 3.6 mmol/L (3.5-5.1); SODIUM 142 mmol/L (136-145); UREA NITROGEN 18 mg/dL (7-18); eGFR NON AFRICAN AMERICAN > 90 mL/min (90-120)
--- NOTE | 2018-08-28 13:45 | NUR ---
1345 RECIEVED TO ROOM VIA STRETCHER FROM OPERATING ROOM REGISTERED NURSE WITH 6 FR EXOSEAL R/GROIN CDI NO BLEEDING OR HEMATOMA NOTED. PATIENT CONNECTED TO MONITOR FOR OBSERVATION
--- NOTE | 2018-08-28 14:00 | NUR ---
PT SLEEPING W EYES CLOSED, R GROIN DRESSING CDI NO BLEEDING OR SWELLING NOTED. NO BLEEDING OR SWELLING NOTED AROUND SITE. R PEDAL PULSES PALPABLE. HR NSR RATE 79. FAMILY AT BEDSIDE AND CALL LIGHT IN REACH.
--- NOTE | 2018-08-28 14:15 | NUR ---
6 FR EXOSEAL R/GROIN IS CDI WITH NO DISTRESS NOTED. FAMILY IS PRESENT AT BEDSIDE
--- NOTE | 2018-08-28 14:43 | NUR ---
6 FR EXOSEAL R/GROIN IS CDI WITH CHEST PAIN DENIED.
--- NOTE | 2018-08-28 14:58 | NUR ---
PT RESTING QUIETLY, R GROIN DRESSING REMAINS CDI, NO BLEEDING OR SWELLING NOTED. BP 169/100, DR SAUNDERS NOTIFIED AND ORDERS RECEIVED. 0.5 CLONIDINE GIVEN PT PER ORDERS. CALL LIGHT IN REACH. FAMILY AT BS
--- NOTE | 2018-08-28 15:30 | NUR ---
PT SLEEPING, BP IMPROVED AFTER CLONIDINE 169/88. R GROIN REMAINS SOFT NO BLEEDING OR HEMATOMA NOTED. DRESSING CDI, PEDAL PULSES PALPABLE. CALL LIGHT IN REACH, FAMILY AT BS
--- NOTE | 2018-08-28 16:00 | NUR ---
PT DENIES PAIN OR NEEDS RESTING COMFORTABLY. R GROIN DRESSING CDI NO BLEEDING OR SWELLING NOTED. CALL LIGHT IN REACH. HR NSR RATE 64, BP 155/91.
--- NOTE | 2018-08-28 16:30 | NUR ---
GROIN REMAINS SOFT NO BLEEDING OR HEMATOMA NOTED. DRESSING CDI HOB ELEVATED SLIGHTLY. O2 REMOVED O2 SAT 97 ON RA. SANDWICH AND DRINK SERVED PER REQUEST. DENIES PAIN OR ANY OTHER NEEDS. CALL LIGHT IN REACH
--- NOTE | 2018-08-28 17:00 | NUR ---
GROIN REMAINS SOFT, DRESSING CDI NO BLEEDING OR SWELLING NOTED. TOLERATED SANDWICH W/O NAUSEA. DENIES PAIN OR ANY OTHER NEEDS. CALL LIGHT IN REACH, FAMILY REMAINS AT BEDSIDE.
--- NOTE | 2018-08-28 17:20 | NUR ---
IV REMOVED W CATH INTACT, MONITORS REMOVED AND PT UP TO DRESS FOR DISCHARGE W ASSIST FROM .
--- NOTE | 2018-08-28 17:30 | NUR ---
DISCHARGE INSTRUCTIONS REVIEWED W PT AND , BOTH VERBALIZED UNDERSTANDING.
--- NOTE | 2018-08-28 17:44 | NUR ---
PT DISCHARGED W BELONGINGS TO PRIVATE VEHICLE VIA WC
--- NOTE | 2018-08-30 09:01 | OP ---
PATIENT NAME: TIP OTTO MEDICAL RECORD: [id number] :51 LOCATION:D.CAT ADMISSION DATE: SURGEON: DENYS TAYLOR MD DATE OF OPERATION: 08/28/2018 PROCEDURE: Cardioversion. DESCRIPTION OF PROCEDURE: After general sedation via TIVA via anesthesia, a single synchronized shock was successful in restoring atrial fibrillation to normal sinus rhythm. IMPRESSION: Successful cardioversion on Tip Otto. COMPLICATIONS: None. DISPOSITION: To the floor, stable. TRANSINT:[id number] Voice Confirmation ID: [id number] DOCUMENT ID: [id number] DENYS TAYLOR MD at 0901 CC: [id number] DICTATION DATE: 08/28/18 1340 SPECIAL DELIVERY CARRIER: 08/28/18 1440 DEP CLI 08/28/18 [id number] [place] [address]
--- NOTE | 2018-08-30 09:01 | OP ---
PATIENT NAME: JONATHAN OTTO MEDICAL RECORD: [id number] :51 LOCATION:D.CAT ADMISSION DATE: SURGEON: DENYS TAYLOR MD DATE OF OPERATION: 08/28/2018 PTCA AND STENT REPORT A 6-Hungarian sheath was placed in the right femoral artery. A hockey stick guiding catheter provided excellent guide catheter support followed by 300-cm Whisper wire which was placed across both 80% stenosed lesions in the right coronary. Distal stent deployed was a 3.0 x 15 and proximal stent was a 3.5 x 12, both Integrity nondrug-eluting stents and both up to 14 atmospheres for 45 seconds. Final angiography shows excellent resolution of two 80% stenoses with no significant residual. ROCCO flow was 3 throughout the procedure. The patient was previously on Plavix, so heparin was used during the case. Sheath was closed with ExoSeal device. TRANSINT:[id number] Voice Confirmation ID: [id number] DOCUMENT ID: [id number] DENYS TAYLOR MD at 0901 CC: [id number] DICTATION DATE: 08/28/18 1339 PROMOTIONS INTERN: 08/28/18 1436 DEP CLI 08/28/18 [facility] [address] [place] [address]
== END 2018-08-28 17:45 | disposition home or self-care (01) ==
LOC: D.CATH 09:50
PROVIDERS: Internal Medicine Interventional Cardiology
DX: I25.110 Atherosclerotic heart disease of native coronary artery with unstable angina pectoris (principal); I48.91 Unspecified atrial fibrillation; Z01.812 Encounter for preprocedural laboratory examination

== ENCOUNTER 2020-03-31 10:34 | Day surgery (SDC) | payer OTHER ==
[2018-08-28 10:24] VITALS: BMI 30.9
[~2020-03-31 10:34] MED LIST changes: +NORVASC5 MG PO
--- NOTE | 2020-03-31 12:37 | NUR ---
EKG DONE AND PT IN NSR. DR. TAYLOR NOTIFIED. PT'S PROCEDURE CANCELLED AND PT INFORMED HE COULD GO HOME AND FOLLOW UP SCHEDULED WITH [facility]. PT VOICED UNDERSTANDING. FAMILY VOICED UNDERSTANDING. PT AMBULATED TO VEHICLE WITHOUT DIFFICULTY. STEADY GAIT NOTED.
== END 2020-03-31 12:38 | disposition home or self-care (01) ==
LOC: D.CATH 10:34
PROVIDERS: ATTEND Internal Medicine Interventional Cardiology
DX: I48.91 Unspecified atrial fibrillation (principal); Z53.9 Procedure and treatment not carried out, unspecified reason